=== PATIENT | female | born 1980 | race Caucasian/White ===

== ENCOUNTER 2016-02-08 06:10 | Emergency (ER) | payer OTHER ==
[2016-02-08 06:31] VITALS: BMI 70.4
[2016-02-08] MEDS ORDERED: FAMOTIDINE 20 MG/50 ML IVPB 50 ML IVPB ONE ×2 (07:20→07:24)
[2016-02-08] MEDS ORDERED: SODIUM CHLORIDE 1,000 ML IV STA (07:20)
[2016-02-08] MEDS ORDERED: ONDANSETRON 4 MG/2 ML VIAL IVPUSH ONE ×2 (07:20→07:59)
--- NOTE | 2016-02-08 07:20 | PDOC ---
History of Present Illness - General History Source: Patient Exam Limitations: No Limitations - History of Present Illness Initial Comments: 02/08/16 07:39 The patient is a 35 year old female, with no significant past medical history, who presents to the emergency department with abdominal pain, nausea and vomiting since this morning. She reports that her pain is localized in the epigastric region, moderate in severity, without radiation. She notes that her pain is exacerbated when the area is palpated. She reports that her vomit has been persistent and non bloody in nature. The patient denies chest pain, shortness of breath, headache and dizziness. Denies fever, chills, diarrhea and constipation. Denies dysuria, frequency, urgency and hematuria. Allergies: None Past surgical history: None reported Social history: No alcohol, tobacco or drug use reported <Bill Vargas - Last Filed: 02/08/16 10:47> <Rosa Williamson - Last Filed: 02/08/16 14:27> - General Chief Complaint: Pain Stated Complaint: ABDOMINAL PAIN Time Seen by Provider: 02/08/16 07:07 Past History <Bill Vargas - Last Filed: 02/08/16 10:47> - Past Medical History Other medical history: denies - Immunization History Immunization Up to Date: Yes - Psycho/Social/Smoking Cessation Hx Anxiety: No Suicidal Ideation: No Smoking History: Never smoked Have you smoked in the past 12 months: No Number of Cigarettes Smoked Daily: 0 If you are a former smoker, when did you quit?: 10 YRS Cigars Per Day: 0 Information on smoking cessation initiated: No Hx Alcohol Use: No Drug/Substance Use Hx: No Substance Use Type: None <Rosa Williamson - Last Filed: 02/08/16 14:27> - Past Medical History Allergies/Adverse Reactions: Allergies Allergy/AdvReac Type Severity Reaction Status Date / Time No Known Allergies Allergy Verified 02/08/16 06:19 Home Medications: Ambulatory Orders Ondansetron [Zofran -] 8 mg PO TID PRN #21 tablet 02/08/16 Oxycodone HCl/Acetaminophen [Percocet 5-325 mg Tablet] 1 tab PO Q6H PRN #12 tablet MDD 4 tabs 02/08/16 Pantoprazole Sodium [Protonix -] 40 mg PO DAILY #30 tablet.ec 02/08/16 Review of Systems - Review of Systems Able to Perform ROS?: Yes Comments:: 02/08/16 07:40 GENERAL/CONSTITUTIONAL: No fever or chills. No weakness. HEAD, EYES, EARS, NOSE AND THROAT: No change in vision. No ear pain or discharge. No sore throat. CARDIOVASCULAR: No chest pain or shortness of breath RESPIRATORY: No cough, wheezing, or hemoptysis. GASTROINTESTINAL: +Abdominal pain, nausea, vomiting. No diarrhea or constipation. GENITOURINARY: No dysuria, frequency, or change in urination. MUSCULOSKELETAL: No joint or muscle swelling or pain. No neck or back pain. SKIN: No rash NEUROLOGIC: No headache, vertigo, loss of consciousness, or change in strength/ sensation. ENDOCRINE: No increased thirst. No abnormal weight change HEMATOLOGIC/LYMPHATIC: No anemia, easy bleeding, or history of blood clots. ALLERGIC/IMMUNOLOGIC: No hives or skin allergy. <Bill Vargas - Last Filed: 02/08/16 10:47> *Physical Exam - Vital Signs Last Vital Signs Temp Pulse Resp BP Pulse Ox 99 F 107 H 20 140/91 98 02/08/16 06:19 02/08/16 06:19 02/08/16 06:19 02/08/16 06:19 02/08/16 06:19 <Bill Vargas - Last Filed: 02/08/16 10:47> - Vital Signs Last Vital Signs Temp Pulse Resp BP Pulse Ox 99 F 107 H 20 140/91 98 02/08/16 06:19 02/08/16 06:19 02/08/16 06:19 02/08/16 06:19 02/08/16 06:19 - Physical Exam Comments: GENERAL: Awake, alert, and fully oriented. Appears uncomfortable. Tearful on interview. HEAD: No signs of trauma EYES: PERRLA, EOMI, sclera anicteric, conjunctiva clear ENT: Auricles normal inspection, hearing grossly normal, nares patent, oropharynx clear without exudates. Dry mucosa NECK: Normal ROM, supple, no lymphadenopathy, JVD, or masses LUNGS: Breath sounds equal, clear to auscultation bilaterally. No wheezes, and no crackles HEART: Regular rate and rhythm, normal S1 and S2, no murmurs, rubs or gallops ABDOMEN: Soft, +epigastric tenderness, normoactive bowel sounds. +Guarding, no rebound. No masses EXTREMITIES: Normal range of motion, no edema. No clubbing or cyanosis. No cords, erythema, or tenderness NEUROLOGICAL: Cranial nerves II through XII grossly intact. Normal speech, normal gait SKIN: Warm, Dry, normal turgor, no rashes or lesions noted. <Rosa Williamson - Last Filed: 02/08/16 14:27> ED Treatment Course - LABORATORY CBC & Chemistry Diagram: 02/08/16 07:14 02/08/16 07:14 - RADIOLOGY Radiograph Interpretation: 02/08/16 10:47 CT abdomen and pelvis with contrast Reviewed by: Dr. Zachariah Chavez Impression: No evidence of acute pathology within the abdomen or pelvis. - Medications Given in the ED: ED Medications Discontinued Medications Generic Name Dose Route Start Last Admin Trade Name Freq PRN Reason Stop Dose Admin Morphine Sulfate 4 mg 02/08/16 07:26 02/08/16 07:35 Morphine Injection - IVPUSH 02/08/16 07:27 4 mg ONCE ONE Administration Ondansetron HCl 4 mg 02/08/16 07:20 02/08/16 07:29 Zofran Injection IVPUSH 02/08/16 07:21 4 mg ONCE ONE Administration <Bill Vargas - Last Filed: 02/08/16 10:47> - LABORATORY CBC & Chemistry Diagram: 02/08/16 07:14 02/08/16 07:14 <Rosa Williamson - Last Filed: 02/08/16 14:27> Medical Decision Making - Medical Decision Making 02/08/16 08:23 Pt reassessed. Still c/o nausea, vomiting, abd pain. Additional history obtained - she was previously diagnosed with gastric ulcer on endoscopy, but did not complete treatment due to losing her insurance. Will give protonix, dilaudid, reglan (she has maxed out on zofran). Likely admit. 02/08/16 12:40 Pt tolerated PO challenge. We discussed DC home vs admission for abdominal exams. She opts to try to treat at home- I will give protonix, percocet, zofran. I counseled her to f/u with GI, due to history of ulcers. Gave her a list of gastroenterologists. <Rosa Williamson - Last Filed: 02/08/16 14:27> *DC/Admit/Observation/Transfer - Attestations Scribe Attestion: 02/08/16 07:40 Documentation prepared by Bill Vargas, acting as medical staff coordinator for Rosa Williamson MD. <Bill Vargas - Last Filed: 02/08/16 10:47> - Discharge Dispostion Admit: No <Rosa Williamson - Last Filed: 02/08/16 14:27> Diagnosis at time of Disposition: Epigastric abdominal pain - Discharge Dispostion Disposition: HOME Condition at time of disposition: Improved - Prescriptions Prescriptions: Oxycodone HCl/Acetaminophen [Percocet 5-325 mg Tablet] 1 tab PO Q6H PRN #12 tablet MDD 4 tabs PRN Reason: Severe Pain Pantoprazole Sodium [Protonix -] 40 mg PO DAILY #30 tablet.ec Ondansetron [Zofran -] 8 mg PO TID PRN #21 tablet PRN Reason: Nausea And/Or Vomiting - Referrals Referrals: Tina Nation [Primary Care Provider] - Bryson Weldon MD [Staff Physician] - - Patient Instructions Printed Discharge Instructions: DI for Abdominal Pain-Adult
[2016-02-08] MEDS ORDERED: ONDANSETRON 4 MG/2 ML VIAL ONE ×2 (07:24→07:57)
[2016-02-08] MEDS ORDERED: morphine CARPU-JECT 4 MG/1 ML DISP.SYRIN IVPUSH ONE (07:26)
[2016-02-08] MEDS ORDERED: morphine CARPU-JECT 4 MG/1 ML DISP.SYRIN ONE (07:30)
[2016-02-08 07:42] LABS: BASOPHIL 0.6 % (0-2.0); EOSINOPHIL 0.6 % (0-4.5); MCH 31.3 pg (25.7-33.7); MCHC 33.3 g/dl (32.0-36.0); MEAN CELL VOLUME 94.1 fl (80-96); MEAN PLT VOLUME 8.9 fl (7.5-11.1); NEUTROPHILS 79.3 % (42.8-82.8); PLATELET COUNT 323 K/MM3 (134-434); RDW 12.9 % (11.6-15.6); WHITE BLOOD COUNT 12.9 K/mm3 (4.0-10.0)
[2016-02-08 08:07] LABS: ANION GAP 7 (8-16); BILIRUBIN,TOTAL 0.2 mg/dL (0.2-1.0); CALCIUM 9.2 mg/dL (8.5-10.1); CO2 27 mmol/L (21-32); CREATININE 0.8 mg/dL (0.55-1.02); GLUCOSE,RANDOM 82 mg/dL (74-106); SGPT/ALT 36 U/L (12-78); TOT PROT 8.1 g/dl (6.4-8.2)
[2016-02-08 08:08] LABS: ALK PHOS 73 U/L (45-117)
[2016-02-08 08:21] LABS: SGOT/AST 29 U/L (15-37)
[2016-02-08] MEDS ORDERED: METOCLOPRAMIDE HCL INJECTION 10 MG/2 ML VIAL IVPB ONE (08:23)
[2016-02-08] MEDS ORDERED: HYDROmorphone HCL CARPU-JECT 1 MG/1 ML DISP.SYRIN IVPUSH ONE (08:23)
[2016-02-08] MEDS ORDERED: PANTOPRAZOLE SODIUM 40 MG in SODIUM CHLORIDE 100 ML IVPB ONE (08:23)
[2016-02-08] MEDS ORDERED: METOCLOPRAMIDE HCL INJECTION 10 MG/2 ML VIAL ONE (08:25)
[2016-02-08] MEDS ORDERED: HYDROmorphone HCL CARPU-JECT 1 MG/1 ML DISP.SYRIN ONE (08:25)
[2016-02-08] MEDS ORDERED: PANTOPRAZOLE SODIUM 40 MG VIAL ONE (08:26)
[2016-02-08 13:19] VITALS: BP 104/65; PULSE 85; TEMP 98.1
== END 2016-02-08 13:19 | disposition home or self-care (01) ==
LOC: JER 06:10
PROC: 3E033GC Introduction of Other Therapeutic Substance into Peripheral Vein, Percutaneous Approach (ICD-10-PCS; principal; 2016-02-08)
PROC: 3E033GC Introduction of Other Therapeutic Substance into Peripheral Vein, Percutaneous Approach (ICD-10-PCS; 2016-02-08)
PROC: 3E033NZ Introduction of Analgesics, Hypnotics, Sedatives into Peripheral Vein, Percutaneous Approach (ICD-10-PCS; 2016-02-08)
PROC: 3E033GC Introduction of Other Therapeutic Substance into Peripheral Vein, Percutaneous Approach (ICD-10-PCS; 2016-02-08)
DX: R10.13 Epigastric pain (principal)
CPT/HCPCS: 36415; 74177-TC; 80053; 83690; 84703; 85025; 99283-25

== ENCOUNTER 2016-10-23 15:02 | Emergency (ER) | payer OTHER ==
[2016-10-23 15:09] VITALS: BP 125/74; PULSE 93; TEMP 98.2; BMI 32.6
--- NOTE | 2016-10-23 15:31 | PDOC ---
History of Present Illness - General History Source: Patient Exam Limitations: No Limitations - History of Present Illness Initial Comments: 10/23/16 15:39 Patient is a 35 year old female with no significant past medical history who presents to the ED with complaints of vomiting beginning 2 days ago. Patient reports sudden onset of vomiting starting two days ago with no stopping. She reports vomiting has developed a green coloration with bitter taste. Patient reports nausea secondary to vomiting. Denies , control. Denies urinary problems, Hx kidney stones. Denies Hx gallbladder problems. Denies constipation, diarrhea. Denies chest pain , SOB. Denies any other symptoms. Allergies: None Social history: No smoking. No alcohol. No drugs Surgical history: C section. PMD: None <Dimitrios Padilla - Last Filed: 10/23/16 15:43> <Dion Danielle - Last Filed: 10/23/16 19:27> - General Chief Complaint: Pain Stated Complaint: VOMITING AND STOMACH PAIN Time Seen by Provider: 10/23/16 15:30 Past History <Dimitrios Padilla - Last Filed: 10/23/16 15:43> - Past Medical History Other medical history: none - Immunization History Immunization Up to Date: Yes - Psycho/Social/Smoking Cessation Hx Anxiety: No Suicidal Ideation: No Smoking History: Never smoked Have you smoked in the past 12 months: No Number of Cigarettes Smoked Daily: 0 If you are a former smoker, when did you quit?: 10 YRS Cigars Per Day: 0 Information on smoking cessation initiated: No Hx Alcohol Use: No Drug/Substance Use Hx: No Substance Use Type: None <Dion Danielle - Last Filed: 10/23/16 19:27> - Past Medical History Allergies/Adverse Reactions: Allergies Allergy/AdvReac Type Severity Reaction Status Date / Time No Known Allergies Allergy Verified 10/23/16 15:06 Home Medications: Ambulatory Orders NK [No Known Home Medication] 10/23/16 Review of Systems - Review of Systems Able to Perform ROS?: Yes Comments:: 10/23/16 15:40 GENERAL/CONSTITUTIONAL: No fever or chills. No weakness. HEAD, EYES, EARS, NOSE AND THROAT: No change in vision. No ear pain or discharge. No sore throat. CARDIOVASCULAR: No chest pain or shortness of breath. RESPIRATORY: No cough, wheezing, or hemoptysis. GASTROINTESTINAL: +Vomiting. +Nausea No nausea, diarrhea or constipation. GENITOURINARY: No dysuria, frequency, or change in urination. MUSCULOSKELETAL: +Abdominal pain. No joint or muscle swelling or pain. No neck or back pain. SKIN: No rash NEUROLOGIC: No headache, vertigo, loss of consciousness, or change in strength/ sensation. ENDOCRINE: No increased thirst. No abnormal weight change. HEMATOLOGIC/LYMPHATIC: No anemia, easy bleeding, or history of blood clots. ALLERGIC/IMMUNOLOGIC: No hives or skin allergy. All Other Systems: Reviewed and Negative <Dimitrios Padilla - Last Filed: 10/23/16 15:43> *Physical Exam - Vital Signs Last Vital Signs Temp Pulse Resp BP Pulse Ox 98.2 F 93 H 18 125/74 100 10/23/16 15:07 10/23/16 15:07 10/23/16 15:07 10/23/16 15:07 10/23/16 15:07 - Physical Exam Comments: 10/23/16 15:40 GENERAL: Awake, alert, and fully oriented, in no acute distress HEAD: No signs of trauma EYES: PERRLA, EOMI, sclera anicteric, conjunctiva clear ENT: Auricles normal inspection, hearing grossly normal, nares patent, oropharynx clear without exudates. Moist mucosa NECK: Normal ROM, supple, no lymphadenopathy, JVD, or masses LUNGS: Breath sounds equal, clear to auscultation bilaterally. No wheezes, and no crackles HEART: Regular rate and rhythm, normal S1 and S2, no murmurs, rubs or gallops ABDOMEN: Soft, nontender, normoactive bowel sounds. No guarding, no rebound. No masses EXTREMITIES: Normal range of motion, no edema. No clubbing or cyanosis. No cords, erythema, or tenderness NEUROLOGICAL: Cranial nerves II through XII grossly intact. Normal speech, normal gait SKIN: Warm, Dry, normal turgor, no rashes or lesions noted. <Dimitrios Padilla - Last Filed: 10/23/16 15:43> - Vital Signs Last Vital Signs Temp Pulse Resp BP Pulse Ox 98.2 F 93 H 18 125/74 100 10/23/16 15:07 10/23/16 15:07 10/23/16 15:07 10/23/16 15:07 10/23/16 15:07 <Dion Danielle - Last Filed: 10/23/16 19:27> ED Treatment Course - LABORATORY CBC & Chemistry Diagram: 10/23/16 16:20 10/23/16 16:20 <Dion Danielle - Last Filed: 10/23/16 19:27> *DC/Admit/Observation/Transfer - Attestations Scribe Attestion: 10/23/16 15:40 Documentation prepared by Dimitrios Padilla, acting as medical billing service for Dion Danielle MD/. <Dimitrios Padilla - Last Filed: 10/23/16 15:43> - Discharge Dispostion Admit: No - Attestations Physician Attestion: 10/23/16 15:30 I, Dr. Dion Danielle, attest that this document has been prepared under my direction and personally reviewed by me in its entirety. I further attest, that it accurately reflects all work, treatment, procedures and medical decision -making performed by me. <Dion Danielle - Last Filed: 10/23/16 19:27> Diagnosis at time of Disposition: Abdominal pain Qualifiers: Abdominal location: right upper quadrant Qualified Code(s): R10.11 - Right upper quadrant pain Vomiting without nausea Qualifiers: Vomiting type: bilious vomiting Qualified Code(s): R11.14 - Bilious vomiting - Discharge Dispostion Disposition: HOME Condition at time of disposition: Good - Referrals Referrals: STAFF,NOT ON [Primary Care Provider] - Cassie Barrera MD [Staff Physician] - - Patient Instructions Printed Discharge Instructions: DI for Viral Gastroenteritis -- Adult Additional Instructions: Ebony- Sorry this is so awful. Use the Zofran for for Nausea and the Bentyl for crampy abdominal pain. Return to us if worse or new symptoms occur. See your Doctor later this week or call Dr. Barrera for follow up. Best- Dr. Dion Danielle
[2016-10-23] MEDS ORDERED: KETOROLAC TROMETHAMINE 30 MG/1 ML VIAL IVPUSH ONE (15:35)
[2016-10-23] MEDS ORDERED: morphine CARPU-JECT 4 MG/1 ML DISP.SYRIN IVPUSH ONE (15:35)
[2016-10-23] MEDS ORDERED: SODIUM CHLORIDE 1,000 ML IV STA (15:36)
[2016-10-23] MEDS ORDERED: morphine CARPU-JECT 4 MG/1 ML DISP.SYRIN ONE (16:09)
[2016-10-23] MEDS ORDERED: KETOROLAC TROMETHAMINE 30 MG/1 ML VIAL ONE (16:09)
[2016-10-23 16:28] LABS: BASOPHIL 0.8 % (0-2.0); EOSINOPHIL 0.5 % (0-4.5); MCH 30.9 pg (25.7-33.7); MCHC 33.4 g/dl (32.0-36.0); MEAN CELL VOLUME 92.4 fl (80-96); MEAN PLT VOLUME 8.4 fl (7.5-11.1); NEUTROPHILS 78.2 % (42.8-82.8); PLATELET COUNT 293 K/MM3 (134-434); RDW 12.7 % (11.6-15.6); WHITE BLOOD COUNT 14.2 K/mm3 (4.0-10.0)
[2016-10-23] MEDS ORDERED: ONDANSETRON 4 MG/2 ML VIAL ONE (16:30)
[2016-10-23] MEDS ORDERED: ONDANSETRON 4 MG/2 ML VIAL IVPB ONE (16:38)
[2016-10-23 16:42] LABS: INR 1.28 (0.82-1.09); PROTHROMBIN TIME (PATIENT) 14.1 SEC (9.98-11.88)
[2016-10-23 16:57] LABS: ALBUMIN 4.1 g/dl (3.4-5.0); ANION GAP 7 (8-16); CALCIUM 9.7 mg/dL (8.5-10.1); CO2 25 mmol/L (21-32); CREATININE 0.8 mg/dL (0.55-1.02); GLUCOSE,RANDOM 88 mg/dL (74-106); SGOT/AST 18 U/L (15-37); SGPT/ALT 32 U/L (12-78)
[2016-10-23 16:59] LABS: ALK PHOS 64 U/L (45-117); BILIRUBIN,TOTAL 0.5 mg/dL (0.2-1.0); TOT PROT 8.5 g/dl (6.4-8.2)
== END 2016-10-23 19:41 | disposition home or self-care (01) ==
LOC: JER 15:02
PROC: 3E033NZ Introduction of Analgesics, Hypnotics, Sedatives into Peripheral Vein, Percutaneous Approach (ICD-10-PCS; principal; 2016-10-23)
PROC: 3E0333Z Introduction of Anti-inflammatory into Peripheral Vein, Percutaneous Approach (ICD-10-PCS; 2016-10-23)
PROC: 3E033GC Introduction of Other Therapeutic Substance into Peripheral Vein, Percutaneous Approach (ICD-10-PCS; 2016-10-23)
DX: R10.11 Right upper quadrant pain (principal); R11.14 Bilious vomiting
CPT/HCPCS: 36415; 76705-TC; 80053; 81003; 83690; 84703; 85025; 85610; 96374; 96375; 99282-25

== ENCOUNTER 2019-03-12 07:43 | Emergency (ER) | payer OTHER ==
[2019-03-12 07:55] VITALS: TEMP 98.7; BMI 26.6
--- NOTE | 2019-03-12 08:07 | PDOC ---
History of Present Illness - General Chief Complaint: Chest Pain Stated Complaint: CHEST PAIN Time Seen by Provider: 03/12/19 08:07 - History of Present Illness Initial Comments: 03/12/19 08:32 38 y/o F no significant medical hx presents today with 4 days of cough and nasal congestion. She tested positive for the flu yesterday and was given tamiflu. She comes in today for chest pain. Pain is mid-sternal and radiates around to her back bilaterally. She describes it as burning, exacerbated by coughing. She took 500mg of tylenol this a.m with no relief. She endorses nausea , night sweats, chills, myalgias. She denies vomiting, fever, recent long travel , previous hx of clots. She currently uses Nuvaring for contraception. 03/12/19 08:39 Past History - Past Medical History Allergies/Adverse Reactions: Allergies Allergy/AdvReac Type Severity Reaction Status Date / Time No Known Allergies Allergy Verified 03/12/19 07:49 Home Medications: Ambulatory Orders Ondansetron [Zofran *Odt*] 8 mg SL TID #30 od.tablet 10/23/16 Gabapentin 300 mg PO BID 03/12/19 Oseltamivir Phosphate [Tamiflu] 75 mg PO ASDIR 03/12/19 COPD: No - Immunization History Immunization Up to Date: Yes - Psycho Social/Smoking Cessation Hx Smoking History: Never smoked Have you smoked in the past 12 months: No Number of Cigarettes Smoked Daily: 0 If you are a former smoker, when did you quit?: 10 YRS Cigars Per Day: 0 Hx Alcohol Use: No Drug/Substance Use Hx: No Substance Use Type: None Review of Systems - Review of Systems Constitutional: Yes: Chills. No: Fever HEENTM: No: Eye Pain, Blurred Vision Respiratory: Yes: Cough. No: Wheezing Cardiac (ROS): Yes: Chest Pain, Chest Tightness ABD/GI: Yes: Nausea. No: Vomiting : No: Burning, Dysuria Musculoskeletal: No: Back Pain, Joint Pain Integumentary: No: Bruising, Change in Color Neurological: No: Headache, Numbness *Physical Exam - Vital Signs Last Vital Signs Temp Pulse Resp BP Pulse Ox 98.7 F 101 H 20 114/70 99 03/12/19 07:48 03/12/19 07:48 03/12/19 07:48 03/12/19 07:48 03/12/19 07:48 - Physical Exam 03/12/19 08:42 GENERAL: Awake, alert, and fully oriented, diaphoretic HEAD: No signs of trauma, normocephalic, atraumatic EYES: PERRLA, EOMI, sclera anicteric, conjunctiva clear ENT: Auricles normal inspection, hearing grossly normal, nares patent, oropharynx clear without exudates. Moist mucosa NECK: Normal ROM, supple, no lymphadenopathy, JVD, or masses LUNGS: No distress, speaks full sentences, clear to auscultation bilaterally HEART: Regular rate and rhythm, normal S1 and S2, no murmurs, rubs or gallops, peripheral pulses normal and equal bilaterally. ABDOMEN: Soft, nontender, normoactive bowel sounds. No guarding, no rebound. No masses EXTREMITIES : Normal inspection, Normal range of motion, no edema. No clubbing or cyanosis NEUROLOGICAL: Cranial nerves II through XII grossly intact. Normal speech, normal gait, no focal sensorimotor deficits SKIN: Warm, Dry, normal turgor, no rashes or lesions noted ED Treatment Course - LABORATORY CBC & Chemistry Diagram: 03/12/19 08:11 03/12/19 08:19 Medical Decision Making - Medical Decision Making 03/12/19 08:43 38 y/o F no significant medical hx presents today with 4 days of cough and nasal congestion. cbc, cmp, ekg, troponin, chest x-ray 03/12/19 09:58 EKG: normal sinus rhythm, normal EKG. CXR: no acute chest pathology. 03/12/19 12:07 Pt. not feeling better after Tylenol given 30mg of IV toradol, will reassess. 03/12/19 12:34 -Pt feeling some relief after toradol -will d/c home. Discharge - Discharge Information Problems reviewed: Yes Clinical Impression/Diagnosis: Flu Condition: Stable Disposition: HOME - Admission No - Follow up/Referral - Patient Discharge Instructions Patient Printed Discharge Instructions: Influenza Additional Instructions: You were seen in the ER for chest pain and the flu Continue to rest at home, drink fluids. you can use tylenol and motrin for pain. Remember to follow all instructions on medication labels for use. RETURN TO THE ER if your cough/chest pain worsens and is not relieved with over the counter medications you develop severe nausea or vomiting, preventing you from keeping down foods. - Post Discharge Activity Work/Back to School Note: Back to School
[2019-03-12] MEDS ORDERED: ONDANSETRON 4 MG/2 ML VIAL IVPUSH ONE (08:29)
[2019-03-12] MEDS ORDERED: SODIUM CHLORIDE 1,000 ML IV STA (08:29)
[2019-03-12] MEDS ORDERED: ACETAMINOPHEN 1000 MG/100 ML VIAL (NON FORMULARY) IVPB ONE (08:29)
[2019-03-12] MEDS ORDERED: ONDANSETRON 4 MG/2 ML VIAL ONE (08:43)
[2019-03-12] MEDS ORDERED: ACETAMINOPHEN INJECTION 100 ML IVPB ONE (08:43)
--- NOTE | 2019-03-12 08:47 | PDOC ---
Attending Attestation - Resident Resident Name: SindykarolynBetopedro [email or web address] - ED Attending Attestation I have performed the following: I have examined & evaluated the patient, The case was reviewed & discussed with the resident, I agree w/resident's findings & plan, Exceptions are as noted - HPI HPI: 03/12/19 08:46 38y F hx of recently diagnosed with influenza (tested positive at urgent care) presents with cough and associated chest pain that is pleuritic. denies any diehl , cp with exertion , fevers, recent travel, hemoptysis, vomiting, leg swelling. P does endose some nasal congestion and nausea, and body aches. Pt ntes the pain i midsternal, is burning in nautre and worse with her paroxysms of cough. - Physicial Exam PE: 03/12/19 11:38 GENERAL: The patient is awake, alert, and fully oriented, Nontoxic - in no acute distress. LUNGS: Breath sounds equal, clear to auscultation bilaterally. No wheezes, no rhonchi, no rales. HEART: Regular rate and rhythm, normal S1 and S2 without murmur, rub or gallop. ABDOMEN: Soft, nontender, No guarding, no rebound. No CVA tenderness EXTREMITIES: Normal range of motion, no edema. NEUROLOGICAL: No facial assymetry, Normal speech, PSYCH: Normal mood, normal affect. SKIN: Warm, Dry, normal turgor, - Medical Decision Making 03/12/19 11:38 influenza with pleuritic cp cxr neg for infiltrate or ptx labs unremakable héctor treat symptomaically/suppotively pmd fu 03/12/19 12:38 pt feeling improved requesting to go home Heart Score/ECG Review - ECG Impressions Comment:: 03/12/19 11:39 Twelve-lead EKG was performed and reviewed by me. There is normal sinus rhythm with a normal rate. rate of 86 The axis is normal. The intervals are normal. There is normal R wave progression There are no ST or T wave abnormalities. Impression: Normal twelve-lead EKG
[2019-03-12 09:20] LABS: BASO % 0.6 % (0-2.0); EOS % 0.3 % (0-4.5); HEMATOCRIT 39.7 % (32.4-45.2); HEMOGLOBIN 13.4 GM/dL (10.7-15.3); LYMPH % 25.6 % (8-40); MCH 31.2 pg (25.7-33.7); MCHC 33.7 g/dl (32.0-36.0); MEAN CELL VOLUME 92.6 fl (80-96); MONO % 5.8 % (3.8-10.2); NEUT % 67.7 % (42.8-82.8); PLATELET COUNT 179 K/MM3 (134-434); RBC 4.29 M/mm3 (3.60-5.2); RDW 12.6 % (11.6-15.6); WHITE BLOOD COUNT 7.5 K/mm3 (4.0-10.0)
--- NOTE | 2019-03-12 09:23 | EKG ---
Test Reason : Blood Pressure : / mmHG Vent. Rate : 086 BPM Atrial Rate : 086 BPM P-R Int : 126 ms QRS Dur : 076 ms QT Int : 344 ms P-R-T Axes : 033 025 028 degrees QTc Int : 411 ms POOR DATA QUALITY, INTERPRETATION MAY BE ADVERSELY AFFECTED NORMAL SINUS RHYTHM NORMAL ECG NO PREVIOUS ECGS AVAILABLE Confirmed by Wilber Castano MD ([id number]) on 03/12/2019 9:22:40 AM Referred By: Confirmed By:Wilber Castano MD
[2019-03-12 10:04] LABS: ALBUMIN 3.3 g/dl (3.4-5.0); ALK PHOS 44 U/L (45-117); ANION GAP 8 MMOL/L (8-16); BILIRUBIN,TOTAL 0.8 mg/dL (0.2-1); BLOOD UREA NITROGEN 8.7 mg/dL (7-18); CALCIUM 8.5 mg/dL (8.5-10.1); CHLORIDE 107 mmol/L (98-107); CO2 24 mmol/L (21-32); GLUCOSE,RANDOM 101 mg/dL (74-106); POTASSIUM 4.1 mmol/L (3.5-5.1); SGOT/AST 24 U/L (15-37); SGPT/ALT 25 U/L (13-61); SODIUM 139 mmol/L (136-145); TOT PROT 7.4 g/dl (6.4-8.2)
[2019-03-12] MEDS ORDERED: KETOROLAC TROMETHAMINE 30 MG/1 ML VIAL IM ONE (10:58)
[2019-03-12] MEDS ORDERED: KETOROLAC TROMETHAMINE 30 MG/1 ML VIAL IVPUSH ONE (11:03)
[2019-03-12] MEDS ORDERED: KETOROLAC TROMETHAMINE 30 MG/1 ML VIAL ONE (11:51)
[2019-03-12 12:52] VITALS: BP 112/64; PULSE 76
== END 2019-03-12 12:52 | disposition home or self-care (01) ==
LOC: JER 07:43
DX: J11.1 Influenza due to unidentified influenza virus with other respiratory manifestations (principal)
CPT/HCPCS: 36415; 71046-TC-FY; 80053; 84484; 84703; 85025; 93005; 93010; 99284-25; J0131; J7030